=== PATIENT | male | born 1950 | race Caucasian/White ===

== ENCOUNTER 2018-05-19 09:19 | Emergency (ER) | payer MEDICARE ==
[2018-05-19] MEDS ORDERED: SODIUM CHLORIDE 0.9% 1000ML 1,000 ML IV ONE (09:22)
[2018-05-19 09:31] VITALS: TEMP 98.6
[2018-05-19 09:38] VITALS: BP 85/69; RESP 26
[2018-05-19] MEDS ORDERED: MORPHINE SULFATE 10 MG/ML SOL IV ONE (09:39)
[2018-05-19] MEDS ORDERED: MORPHINE SULFATE 10 MG/ML SOL ONE (09:40)
[2018-05-19] MEDS ORDERED: SODIUM CHLORIDE 0.9% FLUSH 10 ML SOL IV PRN (09:40)
[2018-05-19 09:41] LABS: BASOPHILS % (AUTO) 0 % (0-3); EOSINOPHILS % (AUTO) 0 % (0-9); HEMATOCRIT 37 % (39-53); HEMOGLOBIN 11.9 gm/dl (13.5-17.7); LYMPHOCYTES % (AUTO) 6.1 % (10-50); MEAN CORPUSCULAR HEMOGLOBIN 31.6 pg (27.0-32.0); MEAN CORPUSCULAR HGB CONC 32.1 gm/dl (32.0-36.0); MEAN CORPUSCULAR VOLUME 98 fL (80-100); MONOCYTES % (AUTO) 3.6 % (0-12); NEUTROPHILS % (AUTO) 90.2 % (37-80)
[2018-05-19] MEDS ORDERED: NOREPINEPHRINE BITARTRATE 4 MG/4 ML SOL IV ONE ×2 (09:50→09:55)
[2018-05-19] MEDS ORDERED: FENTANYL 100MCG/2ML SOL ONE (09:53)
[2018-05-19] MEDS ORDERED: FENTANYL 100MCG/2ML SOL IV ONE (09:54)
[2018-05-19] MEDS ORDERED: CEFTRIAXONE 1 GM PDS ONE (09:56)
[2018-05-19 09:59] LABS: ALBUMIN 2.8 gm/dl (3.4-5.0); ALKALINE PHOSPHATASE 64 IU/L (46-116); ALT 20 IU/L (14-63); AST 17 IU/L (15-37); BILIRUBIN,TOTAL 0.8 mg/dl (0.2-1.0); BLOOD UREA NITROGEN 21 mg/dl (7-18); CALCIUM 7.8 mg/dl (8.5-10.1); CARBON DIOXIDE 21.9 mEq/L (21-32); CHLORIDE 102 mMol/L (98-107); CREATININE 2.17 mg/dl (0.80-1.30); GLUCOSE 97 mg/dl (74-106); POTASSIUM 3.6 mMol/L (3.5-5.1); SODIUM 136 mMol/L (136-145); TOTAL PROTEIN 5.6 gm/dl (6.4-8.2); TROP I < 0.017 ng/ml (0.000-0.056)
[2018-05-19] MEDS ORDERED: CEFTRIAXONE 1 GM PDS 1 GM in SODIUM CHLORIDE 0.9% 50 ML 50 ML IV ONE (10:00)
[2018-05-19 10:08] LABS: ABG PH 7.3 (7.35-7.45)
[2018-05-19 10:24] VITALS: PULSE 105; O2SAT 97
== END 2018-05-19 10:17 | disposition short-term general hospital (02) | DRG 195 ==
LOC: ED 09:19
DX: J18.1 Lobar pneumonia, unspecified organism (principal)
CPT/HCPCS: 36415; 36600; 71045; 80053; 82803; 84484; 85025; 93005; 96365; 96374; 96375; 99291; J0696; J2270; J3010; J3490

== ENCOUNTER 2018-07-21 09:20 | Inpatient (IN) | payer MEDICARE ==
[2018-07-21] MEDS ORDERED: KETOROLAC TROMETHAMINE 30 MG/ML SOL IM ONE (09:37)
[2018-07-21] MEDS ORDERED: KETOROLAC TROMETHAMINE 30 MG/ML SOL ONE (09:38)
[2018-07-21] MEDS: ACETAMINOPHEN 500 MG 500 MG TAB PO SCH ×2 (14:24→20:08)
[2018-07-21] MEDS: ENOXAPARIN 80 MG SOL SC SCH (15:25)
[2018-07-21] MEDS: OXYCODONE HYDROCHLORIDE 5 MG TAB PO PRN ×2 (17:31→23:53)
[2018-07-21] MEDS: NAPROXEN 500 MG TAB PO SCH (20:07)
[2018-07-21] MEDS: NICOTINE 7 MG PATCH TD SCH (21:57)
[2018-07-22] MEDS: ENOXAPARIN 80 MG SOL SC SCH (03:41)
[2018-07-22] MEDS: OXYCODONE HYDROCHLORIDE 5 MG TAB PO PRN ×3 (06:19→17:40)
[2018-07-22 07:09] LABS: BASOPHILS % (AUTO) 1 % (0-3); EOSINOPHILS % (AUTO) 2 % (0-9); HEMATOCRIT 33 % (39-53); HEMOGLOBIN 10.8 gm/dl (13.5-17.7); LYMPHOCYTES % (AUTO) 29.5 % (10-50); MEAN CORPUSCULAR HEMOGLOBIN 31.9 pg (27.0-32.0); MEAN CORPUSCULAR HGB CONC 32.6 gm/dl (32.0-36.0); MEAN CORPUSCULAR VOLUME 98 fL (80-100); MONOCYTES % (AUTO) 7.9 % (0-12); NEUTROPHILS % (AUTO) 59.1 % (37-80)
[2018-07-22 07:18] LABS: ALBUMIN 2.5 gm/dl (3.4-5.0); BILIRUBIN,TOTAL 0.4 mg/dl (0.2-1.0); CALCIUM 8.5 mg/dl (8.5-10.1); CARBON DIOXIDE 25.9 mEq/L (21-32); CREATININE 0.88 mg/dl (0.80-1.30); POTASSIUM 3.2 mMol/L (3.5-5.1); TOTAL PROTEIN 5.6 gm/dl (6.4-8.2)
[2018-07-22] MEDS: ACETAMINOPHEN 500 MG 500 MG TAB PO SCH ×3 (08:16→20:05)
[2018-07-22] MEDS: NAPROXEN 500 MG TAB PO SCH ×2 (08:16→20:05)
[2018-07-22] MEDS ORDERED: ENOXAPARIN 80 MG SOL SC SCH (09:00)
[2018-07-22] MEDS: NICOTINE 7 MG PATCH TD SCH (20:48)
[2018-07-23] MEDS: OXYCODONE HYDROCHLORIDE 5 MG TAB PO PRN ×4 (01:35→19:38)
[2018-07-23 08:39] LABS: CALCIUM 8.3 mg/dl (8.5-10.1); CARBON DIOXIDE 23.4 mEq/L (21-32); CREATININE 0.83 mg/dl (0.80-1.30); POTASSIUM 3.3 mMol/L (3.5-5.1)
[2018-07-23] MEDS: ACETAMINOPHEN 500 MG 500 MG TAB PO SCH ×3 (09:34→20:53)
[2018-07-23] MEDS: NAPROXEN 500 MG TAB PO SCH ×2 (09:34→20:52)
[2018-07-23] MEDS: POTASSIUM CHLORIDE 10 MEQ TER PO SCH (11:32)
[2018-07-23] MEDS: NICOTINE 7 MG PATCH TD SCH (22:53)
[2018-07-24 00:32] VITALS: O2SAT 94
[2018-07-24] MEDS: NICOTINE 7 MG PATCH TD SCH (00:45)
[2018-07-24] MEDS: OXYCODONE HYDROCHLORIDE 5 MG TAB PO PRN ×3 (01:48→10:37)
[2018-07-24 07:29] VITALS: BP 148/84; PULSE 73; RESP 20; TEMP 97.6
[2018-07-24 07:29] LABS: CALCIUM 8.5 mg/dl (8.5-10.1); CREATININE 0.83 mg/dl (0.80-1.30); POTASSIUM 3.6 mMol/L (3.5-5.1)
[2018-07-24] MEDS: ACETAMINOPHEN 500 MG 500 MG TAB PO SCH (08:28)
[2018-07-24] MEDS: NAPROXEN 500 MG TAB PO SCH (08:30)
[2018-07-24] MEDS: POTASSIUM CHLORIDE 10 MEQ TER PO SCH (08:31)
== END 2018-07-24 11:02 | DRG 560 ==
LOC: ED 09:20 → ACUTE CARE 11:51 → UNDOADMIN 11:51 → ACUTE CARE 12:25
PROVIDERS: ADMIT Family Medicine; ATTEND Family Medicine
PROC: F01ZCZZ Transfer Assessment (ICD-10-PCS; principal; 2018-07-22)
PROC: F02Z0ZZ Bathing/Showering Assessment (ICD-10-PCS; 2018-07-22)
PROC: F02Z3ZZ Grooming/Personal Hygiene Assessment (ICD-10-PCS; 2018-07-22)
DX: S32.19XA Other fracture of sacrum, initial encounter for closed fracture (principal); S32.392A Other fracture of left ilium, initial encounter for closed fracture; S32.8 Fracture of other parts of pelvis; I82.4Z2 Acute embolism and thrombosis of unspecified deep veins of left distal lower extremity; F17.210 Nicotine dependence, cigarettes, uncomplicated; L98.419 Non-pressure chronic ulcer of buttock with unspecified severity
CPT/HCPCS: 36415; 72192; 80048; 80053; 85025; 96372; 99283; J1650; J1885; A6232; A6402; A9270-GY